=== PATIENT | female | born 1955 | race Hispanic/Latino ===

== ENCOUNTER 2024-04-21 12:06 | Day surgery (SDC) | payer MEDICARE ==
[2024-04-16 15:23] LABS: APPEARANCE,URINE CLEAR (CLEAR); BILIRUBIN,URINE NEGATIVE (NEGATIVE); COLOR,URINE YELLOW (YELLOW); GLUCOSE, URINE (UA) 200 mg/dL (NEGATIVE); KETONES,URINE NEGATIVE (NEGATIVE); LEUKOCYTE ESTERASE ,URINE NEGATIVE Leu/uL (NEGATIVE); NITRATE,URINE NEGATIVE (NEGATIVE); OCCULT BLOOD,URINE SMALL (NEGATIVE); PROTEIN,URINE 10 mg/dL (NEGATIVE); UROBILINOGEN,URINE 3 mg/dL (0.2-1.0)
[2024-04-16 15:24] LABS: BASOPHILS # (AUTO) 0.07 K/uL (0.00-0.20); BASOPHILS % (AUTO) 1.4 % (0.0-5.0); EOSINOPHILS % (AUTO) 11.8 % (0.0-8.0); HEMATOCRIT 31.9 % (36-48); IMMATURE GRANULOCYTE ABSOLUTE 0.01 K/uL (0-1); LYMPHOCYTES # (AUTO) 1.1 K/uL (1.0-4.8); LYMPHOCYTES % (AUTO) 20.7 % (21.0-51.0); MEAN CORPUSCULAR HEMOGLOBIN 25.6 pg (27.0-33.0); MEAN CORPUSCULAR HGB CONC 30.7 g/dL (32.0-36.0); MEAN CORPUSCULAR VOLUME 83.3 fL (79-99); MONOCYTES # (AUTO) 0.5 K/uL (0.1-1.0); NEUTROPHILS # (AUTO) 2.8 K/uL (1.8-7.7); NEUTROPHILS % (AUTO) 55.9 % (40.0-77.0); PLATELET COUNT (AUTO) 94 K/uL (130-400); RED BLOOD CELL COUNT(AUTO) 3.83 MIL/uL (4.00-5.50); RED CELL DISTRIBUTION WIDTH 22.4 % (11.0-15.5); WHITE BLOOD COUNT (AUTO) 5.1 K/uL (4.8-10.8)
[2024-04-16 15:29] LABS: ADD UA MICROSCOPIC YES
[2024-04-16 15:31] LABS: BACTERIA,URINE MOD /HPF (None Seen); MUCUS,URINE RARE LPF (None Seen); SQUAMOUS EPITHELIAL CELL,UR MOD /HPF (0-2)
[2024-04-16 15:37] LABS: CREATININE 0.7 mg/dL (0.5-1.0); POTASSIUM 4.1 mmol/L (3.5-5.1)
[2024-04-16 15:38] LABS: INR 1.16 (0.85-1.15); PROTHROMBIN TIME 13.5 SEC (9.6-11.6)
[2024-04-16 15:39] LABS: PARTIAL THROMBOPLASTIN TIME 29.6 SEC (26.3-35.5)
[2024-04-16 16:19] VITALS: BP 149/64; PULSE 82; RESP 18
[2024-04-16 17:03] LABS: B-TYPE NATRIURETIC PEPTIDE 121 pg/mL (0-100)
[~2024-04-21] VITALS: Ht 157.5 cm; Wt 90.5 kg
[2024-04-21] VITALS (8 sets, daily range): BP systolic 115–145; BP diastolic 50–67; PULSE 64–78; RESP 15–17
[~2024-04-21 12:06] MED LIST: ALBU0.63 IH; ASPI-1197 PO; FURO20TA6 PO
[2024-04-21] MEDS ORDERED: LIDOCAINE HCL 400MG/20ML VIAL ONE (14:23)
[2024-04-21] MEDS ORDERED: FENTANYL CITRATE PF 50 MCG/1 ML 2ML VIAL ONE (14:24)
[2024-04-21] MEDS ORDERED: MIDAZOLAM HCL 1 MG/ML 2ML VIAL ONE (14:24)
[2024-04-21] MEDS ORDERED: IOHEXOL 350 MG/ML 100ML INFUS..BTL IV ONE (14:25)
[2024-04-21] MEDS ORDERED: NITROGLYCERIN 50MG VIAL ONE (14:25)
[2024-04-21] MEDS ORDERED: VERAPAMIL HCL 2.5 MG/ML VIAL ONE (14:25)
[2024-04-21] MEDS ORDERED: HEPARIN 10,000 UNIT/10ML (1,000 UNIT/ML) VIAL ONE (14:59)
[2024-04-21] MEDS ORDERED: 0.9%NACL 1000ML 1,000 ML IV SCH (15:30)
[2024-04-21] MEDS ORDERED: ACETAMINOPHEN WITH CODEINE 1 TAB TAB PO PRN (15:30)
[2024-04-21] MEDS ORDERED: SPIR25TA6 PO (16:04)
== END 2024-04-21 18:30 | disposition home or self-care (01) ==
LOC: DAH 12:06
PROVIDERS: ATTEND Internal Medicine
DX: I25.119 Atherosclerotic heart disease of native coronary artery with unspecified angina pectoris (principal); R94.31 Abnormal electrocardiogram [ECG] [EKG]; I38 Endocarditis, valve unspecified; J84.10 Pulmonary fibrosis, unspecified; I10 Essential (primary) hypertension; E11.9 Type 2 diabetes mellitus without complications; Z72.89 Other problems related to lifestyle; Z90.49 Acquired absence of other specified parts of digestive tract; Z80.9 Family history of malignant neoplasm, unspecified; Z83.49 Family history of other endocrine, nutritional and metabolic diseases; Z79.01 Long term (current) use of anticoagulants; Z79.82 Long term (current) use of aspirin; Z98.890 Other specified postprocedural states
CPT/HCPCS: 80048; 83880; 85025; 85610; 85730; 81001; 36415; 71045; 93005; 93458; 82948; C1769; C1894; A4649; Q9965; J3010; J3490 ×3; J1644 ×2; J2250; Q9967; 99156; 99157